=== PATIENT | female | born 1995 | race Two or more races ===

== ENCOUNTER 2022-05-06 11:51 | Emergency (ER) | payer SELFPAY ==
[2022-05-06 13:39] VITALS: BP 109/77
[2022-05-06 14:31] LABS: HCG Qualitative,Urine Negative (Negative)
[2022-05-06 14:36] LABS: Mucus,Urine 1+ /HPF
[2022-05-06 15:14] LABS: Hematocrit 38.8 % (30.3-42.9); Hemoglobin 12.6 gm/dl (10.1-14.3); Mean Corpuscular HGB Conc 33 % (30-34); Mean Corpuscular Volume 81 fl (79-97); Platelet Count 345 K/mm3 (140-440); Red Blood Count 4.82 M/mm3 (3.65-5.03); Red Cell Distribution Width 14.3 % (13.2-15.2)
[2022-05-06 15:30] LABS: Alanine Aminotransferase 15 units/L (7-56); Albumin 4.7 g/dL (3.9-5); BUN/Creatinine Ratio 33; Bilirubin,Direct < 0.2 mg/dL (0-0.2); Blood Urea Nitrogen 20 mg/dL (7-17); Calcium 9.2 mg/dL (8.4-10.2); Hemolysis Index 14
[2022-05-06] MEDS ORDERED: CEFEPIME/NS 2 GM/100 ML 2 GM/100 ML BAG IV ONE (15:35)
[2022-05-06] MEDS ORDERED: SODIUM CHLORIDE 0.9% 1000 ML IV SOLN IV ONE (15:35)
[2022-05-06] MEDS ORDERED: ONDANSETRON 4 MG/2 ML INJ IV ONE (15:38)
[2022-05-06] MEDS ORDERED: SODIUM CHLORIDE 0.9% 1000 ML 1,000 ML IV ONE (15:38)
[2022-05-06 16:19] LABS: Anisocytosis 1+; Basophils % (Manual) 0 % (0.0-1.8); Eosinophils % (Manual) 0 % (0.0-4.3); Hypochromasia 1+; Platelet Estimate Consistent w Auto; Total Cells Counted 100
--- NOTE | 2022-05-06 17:11 | Emergency Department Report ---
ED Abdominal Pain HPI - General Chief Complaint: Abdominal Pain Stated Complaint: STOMACH PAIN/NAUSEA/DIARRHEA PUI?: No Time Seen by Provider: 05/06/22 13:47 Source: patient Mode of arrival: Ambulatory Limitations: No Limitations - History of Present Illness Initial Comments: 27 YO COMES TO ER CO N/V AND DIARRHEA. ACUTE ONSET TODAY. NO FEVER OR CHILLS. LMP 2 WEEKS AGO. AMBULATORY TO ER NO ACTIVE VOMITING. MD Complaint: abdominal pain -: Sudden, hour(s) Radiation: none Severity scale (0 -10): 2 Quality: cramping Improves With: nothing Worsens With: nothing Associated Symptoms: denies other symptoms, nausea, vomiting, diarrhea - Related Data LMP (females 10-50): 2 months Previous Rx's Medication Instructions Recorded Last Taken Type Ondansetron [Zofran Odt] 4 mg PO Q8HR PRN #10 tab.rapdis 05/06/22 Unknown Rx Allergies Allergy/AdvReac Type Severity Reaction Status Date / Time No Known Allergies Allergy Verified 05/06/22 13:39 ED Review of Systems ROS: Stated complaint: STOMACH PAIN/NAUSEA/DIARRHEA Other details as noted in HPI Comment: All other systems reviewed and negative ED Past Medical Hx - Past Medical History Previous Medical History?: No - Surgical History Past Surgical History?: Yes Additional Surgical History: wisdom tooth extraction - Family History Family history: no significant - Social History Smoking Status: Never Smoker Substance Use Type: None - Medications Home Medications: Home Medications Medication Instructions Recorded Confirmed Last Taken Type Ondansetron [Zofran Odt] 4 mg PO Q8HR PRN #10 tab.rapdis 05/06/22 Unknown Rx ED Physical Exam - General Limitations: No Limitations General appearance: alert, in no apparent distress - Head Head exam: Present: atraumatic, normocephalic - Eye Eye exam: Present: normal appearance - ENT ENT exam: Present: mucous membranes moist - Neck Neck exam: Present: normal inspection - Respiratory Respiratory exam: Present: normal lung sounds bilaterally. Absent: respiratory distress - Cardiovascular Cardiovascular Exam: Present: regular rate, normal rhythm. Absent: systolic murmur, diastolic murmur, rubs, gallop - GI/Abdominal GI/Abdominal exam: Present: soft, normal bowel sounds - Extremities Exam Extremities exam: Present: normal inspection - Back Exam Back exam: Present: normal inspection - Neurological Exam Neurological exam: Present: alert, oriented X3 - Psychiatric Psychiatric exam: Present: normal affect, normal mood - Skin Skin exam: Present: warm, dry, intact, normal color. Absent: rash ED Course Vital Signs 05/06/22 13:34 Temperature 97.9 F Pulse Rate 104 H Respiratory 14 Rate Blood Pressure 109/77 O2 Sat by Pulse 99 Oximetry ED Medical Decision Making - Lab Data Result diagrams: 05/06/22 14:20 05/06/22 14:20 - Radiology Data Radiology results: report reviewed, image reviewed [facility] - Medical Decision Making Labs 05/06/22 05/06/22 05/06/22 14:20 14:20 Unknown WBC 14.0 H RBC 4.82 Hgb 12.6 Hct 38.8 MCV 81 MCH 26 L MCHC 33 RDW 14.3 Plt Count 345 Add Manual Diff Complete Total Counted 100 Seg Neutrophils % [place] Seg Neuts % (Manual) 91.0 H Band Neutrophils % 0 Lymphocytes % (Manual) 5.0 L Reactive Lymphs % (Man) 0 Monocytes % (Manual) 4.0 Eosinophils % (Manual) 0 Basophils % (Manual) 0 Metamyelocytes % 0 Myelocytes % 0 Promyelocytes % 0 Blast Cells % 0 Nucleated RBC % Not Reportable Seg Neutrophils # Man 12.7 H Band Neutrophils # 0.0 Lymphocytes # (Manual) 0.7 L Abs React Lymphs (Man) 0.0 Monocytes # (Manual) 0.6 Eosinophils # (Manual) 0.0 Basophils # (Manual) 0.0 Metamyelocytes # 0.0 Myelocytes # 0.0 Promyelocytes # 0.0 Blast Cells # 0.0 WBC Morphology Not Reportable Hypersegmented Neuts Not Reportable Hyposegmented Neuts Not Reportable Hypogranular Neuts Not Reportable Smudge Cells Not Reportable Toxic Granulation Not Reportable Toxic Vacuolation Not Reportable Dohle Bodies Not Reportable Pelger-Huet Anomaly Not Reportable Todd Rods Not Reportable Platelet Estimate Consistent w auto Clumped Platelets Not Reportable Plt Clumps, EDTA Not Reportable Large Platelets Not Reportable Giant Platelets Not Reportable Platelet Satelliting Not Reportable Plt Morphology Comment Not Reportable RBC Morphology Not Reportable Dimorphic RBCs Not Reportable Polychromasia Not Reportable Hypochromasia 1+ Poikilocytosis Not Reportable Anisocytosis 1+ Microcytosis Not Reportable Macrocytosis Not Reportable Spherocytes Not Reportable Pappenheimer Bodies Not Reportable Sickle Cells Not Reportable Target Cells Not Reportable Tear Drop Cells Not Reportable Ovalocytes Not Reportable Helmet Cells Not Reportable [place] Bodies Not Reportable [place] Rings Not Reportable [place] Cells Not Reportable Bite Cells Not Reportable Crenated Cell Not Reportable Elliptocytes Not Reportable Acanthocytes (Spur) Not Reportable Rouleaux Not Reportable Hemoglobin C Crystals Not Reportable Schistocytes Not Reportable Malaria parasites Not Reportable [place]in Bodies Not Reportable Hem Pathologist Commnt No Sodium 139 Potassium 4.0 Chloride 101.1 Carbon Dioxide 25 Anion Gap 17 BUN 20 H Creatinine 0.6 Estimated GFR > 60 BUN/Creatinine Ratio 33 Glucose 91 Calcium 9.2 Total Bilirubin 0.50 Direct Bilirubin < 0.2 Indirect Bilirubin 0.3 AST 20 ALT 15 Alkaline Phosphatase 58 Total Protein 7.7 Albumin 4.7 Albumin/Globulin Ratio 1.6 Lipase 37 Specific [place] (Man) 1.015 Ur Protein (Man) 1+ Ur Ketones (Man) 5mg/dl Urine Bilirubin (Man) Negative Urine WBC (Auto) 1.0 Urine RBC (Auto) 2.0 U Epithel Cells (Auto) 7.0 Urine RBC (Manual) Trace Urine Mucus 1+ Urine HCG, Qual Negative Vital Signs 05/06/22 13:34 Temperature 97.9 F Pulse Rate 104 H Respiratory 14 Rate Blood Pressure 109/77 O2 Sat by Pulse 99 Oximetry LABS NOTED UA NOTED PREG NEG WBC 14 CT COMPLETED- NAP 1L NS/ZOFRAN NO ACTIVE VOMITING IN ER. DC HOME WITH DC PLAN OF CARE INCLUDING DIET, MEDS, ACTIVITY AND FOLLOW UP. PT VERBALIZES UNDERSTANDING OF PLAN OF CARE. - Differential Diagnosis RO PREG/CHOLEY/APPY/GASTROENTERITIS Critical care attestation.: If time is entered above; I have spent that time in minutes in the direct care of this critically ill patient, excluding procedure time. ED Disposition Clinical Impression: Gastroenteritis Disposition: 01 HOME / SELF CARE / HOMELESS Is pt being admited?: No Does the pt Need Aspirin: No Condition: Stable Instructions: Viral Gastroenteritis, Adult, Abdominal Pain (ED) Additional Instructions: BLAND DIET STAY WELL HYDRATED WITH WATER MOTRIN OR TYLENOL FOR PAIN ZOFRAN FOR NAUSEA OVER THE COUNTER LOMOTIL FOR DIARRHEA FOLLOW UP WITH PCP IF PROBLEM PERSISTS REFERRAL BELOW Prescriptions: Ondansetron [Zofran Odt] 4 mg PO Q8HR PRN #10 tab.rapdis PRN Reason: Vomiting Referrals: MADAN VALENTINE MD [Staff Physician] - 3-5 Days Forms: Work/School Release Form(ED) Time of Disposition: 17:25
--- NOTE | 2022-05-06 17:23 | Cat Scan Report ---
CT ABDOMEN AND PELVIS WITH CONTRAST INDICATION / CLINICAL INFORMATION: abd pain 80ml of [id number]. TECHNIQUE: Axial CT images were obtained through the abdomen and pelvis after IV contrast. All CT sc ans at this location are performed using CT dose reduction for ALARA by means of automated exposure c ontrol. COMPARISON: None available. FINDINGS: LOWER CHEST: No significant abnormality. LIVER: No significant abnormality. GALLBLADDER/BILIARY: No significant abnormality or evidence for biliary obstruction. PANCREAS: No significant abnormality. SPLEEN: No significant abnormality. ADRENALS: No significant abnormality. KIDNEYS/URETERS: No urolithiasis, hydronephrosis, solid renal mass or other significant abnormality. GI: No acute bowel inflammation, obstruction or evidence for ischemia. APPENDIX: No significant abnormality. PERITONEUM: No pneumoperitoneum, free peritoneal fluid or loculated fluid collection. LYMPH NODES: No significant adenopathy. AORTA / ARTERIES: No significant abnormality. URINARY BLADDER: No significant abnormality. REPRODUCTIVE ORGANS: The uterus and adnexa are unremarkable for age. SKELETAL SYSTEM: No acute or destructive osseous process. ADDITIONAL FINDINGS: None. IMPRESSION: 1. No acute abdominopelvic process. Signer Name: Sy Romero MD Signed: 05/06/2022 5:18 PM Workstation Name: [employer]
== END 2022-05-06 17:27 | disposition home or self-care (01) ==
LOC: ED 11:51
DX: K52.9 Noninfective gastroenteritis and colitis, unspecified (principal); Z79.899 Other long term (current) drug therapy
CPT/HCPCS: 36415; 74177; 80048; 80076; 81001; 81025; 83690; 85007; 85025; 96361; 96365; 96375; 99284; J0692; J2405; J7030; Q9967